=== PATIENT | male | born 1950 | race African-American/Black ===

== ENCOUNTER 2020-09-28 23:06 | Inpatient (IN) | payer OTHER ==
[2020-09-28 23:15] VITALS: BMI 22.2
[2020-09-29] MEDS ORDERED: FUROSEMIDE 40 MG/4 ML INJECTABLE VIAL IVPUSH ONE ×2 (00:37→05:10)
[2020-09-29 01:18] LABS: BASO % 0.8 % (0-2.0); EOS % 0.3 % (0-4.5); HEMATOCRIT 36.3 % (35.4-49); HEMOGLOBIN 12.1 GM/dL (11.7-16.9); LYMPH % 21.9 % (8-40); MCH 28.5 pg (25.7-33.7); MCHC 33.4 g/dl (32.0-35.9); MEAN CELL VOLUME 85.4 fl (80-96); MEAN PLT VOLUME 8.8 fl (7.5-11.1); MONO % 12.5 % (3.8-10.2); NEUT % 64.5 % (42.8-82.8); PLATELET COUNT 259 10^3/uL (134-434); RBC 4.25 M/mm3 (4.00-5.60); RDW 14.1 % (11.9-15.9); WHITE BLOOD COUNT 5.1 K/mm3 (4.0-10.0)
[2020-09-29 01:48] LABS: CALCIUM 9.2 mg/dL (8.5-10.1)
[2020-09-29 01:49] LABS: ALBUMIN 4.4 g/dl (3.4-5.0); BLOOD UREA NITROGEN 35.3 mg/dL (7-18)
[2020-09-29 01:52] LABS: CREATININE 2.3 mg/dL (0.55-1.3)
[2020-09-29 01:54] LABS: BILIRUBIN,TOTAL 2.3 mg/dL (0.2-1); TOT PROT 8.5 g/dl (6.4-8.2)
[2020-09-29] MEDS ORDERED: FUROSEMIDE 40 MG/4 ML INJECTABLE VIAL ONE ×3 (01:54→12:43)
[2020-09-29 01:57] LABS: N-TERMINAL BNP 30100.4 pg/ml (5-125)
[2020-09-29] MEDS ORDERED: INSULIN (NOVOLOG) ASPART 100 UNITS/ML 10ML VIAL SQ SCH ×2 (07:00)
[2020-09-29] MEDS ORDERED: INSULIN SLIDING SCALE (NOVOLOG) 1 VIAL SQ ONE (08:36)
[2020-09-29] MEDS ORDERED: CARVEDILOL 12.5 MG TABLET (FP) ONE (10:17)
[2020-09-29] MEDS ORDERED: APIXABAN 5 MG TABLET ONE (10:17)
[2020-09-29] MEDS: APIXABAN 5 MG TABLET PO SCH (10:36)
[2020-09-29] MEDS: POLYETHYLENE GLYCOL (HEALTHYLAX) 3350 17 GM PACKET PO SCH ×2 (10:36→23:40)
[2020-09-29] MEDS: INSULIN SLIDING SCALE (NOVOLOG) 1 VIAL SQ SCH ×2 (10:36→16:41)
[2020-09-29] MEDS: CARVEDILOL 12.5 MG TABLET (FP) PO SCH (10:36)
[2020-09-29] MEDS: FUROSEMIDE 40 MG/4 ML INJECTABLE VIAL IVPUSH SCH (13:01)
[2020-09-29 14:02] LABS: HEMATOCRIT 32.2 % (35.4-49); HEMOGLOBIN 10.7 GM/dL (11.7-16.9); MCH 28.3 pg (25.7-33.7); MCHC 33.2 g/dl (32.0-35.9); MEAN CELL VOLUME 85.3 fl (80-96); MEAN PLT VOLUME 8.4 fl (7.5-11.1); PLATELET COUNT 204 10^3/uL (134-434); RBC 3.77 M/mm3 (4.00-5.60); RDW 14.2 % (11.9-15.9); WHITE BLOOD COUNT 4.9 K/mm3 (4.0-10.0)
[2020-09-29 14:19] LABS: BLOOD UREA NITROGEN 42.3 mg/dL (7-18); MAGNESIUM 2.1 mg/dL (1.8-2.4)
[2020-09-29 14:22] LABS: CREATININE 2.3 mg/dL (0.55-1.3)
[2020-09-29 14:23] LABS: PHOSPHOROUS 4.3 mg/dL (2.5-4.9)
[2020-09-30] MEDS: ATORVASTATIN CA 20 MG TABLET (FP) PO SCH ×2 (00:08→21:50)
[2020-09-30] MEDS: GABAPENTIN 100 MG CAPSULE PO SCH ×3 (00:08→21:50)
[2020-09-30] MEDS: APIXABAN 5 MG TABLET PO SCH ×3 (00:08→21:50)
[2020-09-30] MEDS: CARVEDILOL 12.5 MG TABLET (FP) PO SCH ×3 (00:08→21:50)
[2020-09-30] MEDS: INSULIN SLIDING SCALE (NOVOLOG) 1 VIAL SQ SCH ×5 (00:08→21:51)
[2020-09-30] MEDS: FUROSEMIDE 40 MG/4 ML INJECTABLE VIAL IVPUSH SCH ×3 (06:19→15:25)
[2020-09-30 07:59] LABS: BASO % 0.8 % (0-2.0); EOS % 2.3 % (0-4.5); HEMATOCRIT 32.2 % (35.4-49); HEMOGLOBIN 10.7 GM/dL (11.7-16.9); LYMPH % 18.2 % (8-40); MCH 28.7 pg (25.7-33.7); MCHC 33.4 g/dl (32.0-35.9); MEAN PLT VOLUME 8.9 fl (7.5-11.1); MONO % 14.8 % (3.8-10.2); NEUT % 63.9 % (42.8-82.8); PLATELET COUNT 202 10^3/uL (134-434); RBC 3.74 M/mm3 (4.00-5.60); RDW 14.5 % (11.9-15.9); WHITE BLOOD COUNT 4.4 K/mm3 (4.0-10.0)
[2020-09-30 08:23] LABS: ALBUMIN 3.6 g/dl (3.4-5.0); CALCIUM 8.7 mg/dL (8.5-10.1); MAGNESIUM 1.9 mg/dL (1.8-2.4)
[2020-09-30 08:26] LABS: CREATININE 2.1 mg/dL (0.55-1.3)
[2020-09-30 08:28] LABS: BILIRUBIN,TOTAL 1.9 mg/dL (0.2-1); PHOSPHOROUS 4.1 mg/dL (2.5-4.9); TOT PROT 6.7 g/dl (6.4-8.2)
[2020-09-30] MEDS: POLYETHYLENE GLYCOL (HEALTHYLAX) 3350 17 GM PACKET PO SCH ×2 (10:04→21:51)
[2020-09-30] MEDS ORDERED: MAGNESIUM OXIDE 400 MG TABLET (FP) PO ONE (10:23)
[2020-09-30 19:46] LABS: URINE APPEARANCE CLEAR; URINE BILIRUBIN NEGATIVE (NEGATIVE); URINE COLOR YELLOW; URINE GLUCOSE (UA) NEGATIVE (NEGATIVE); URINE KETONE NEGATIVE (NEGATIVE); URINE LEUK ESTERASE NEGATIVE (NEGATIVE); URINE NITRITE NEGATIVE (NEGATIVE); URINE PROTEIN NEGATIVE (NEGATIVE)
[2020-10-01] MEDS: FUROSEMIDE 40 MG/4 ML INJECTABLE VIAL IVPUSH SCH ×2 (06:29→14:17)
[2020-10-01] MEDS: INSULIN SLIDING SCALE (NOVOLOG) 1 VIAL SQ SCH ×4 (06:30→21:25)
[2020-10-01 08:03] LABS: BASO % 0.7 % (0-2.0); EOS % 2.4 % (0-4.5); HEMATOCRIT 30.6 % (35.4-49); HEMOGLOBIN 10.2 GM/dL (11.7-16.9); LYMPH % 23.3 % (8-40); MCH 28.4 pg (25.7-33.7); MCHC 33.4 g/dl (32.0-35.9); MEAN CELL VOLUME 84.9 fl (80-96); MEAN PLT VOLUME 8.4 fl (7.5-11.1); MONO % 16.9 % (3.8-10.2); NEUT % 56.7 % (42.8-82.8); PLATELET COUNT 206 10^3/uL (134-434); RBC 3.61 M/mm3 (4.00-5.60); RDW 14.5 % (11.9-15.9); WHITE BLOOD COUNT 3.8 K/mm3 (4.0-10.0)
[2020-10-01 08:19] LABS: ALBUMIN 3.3 g/dl (3.4-5.0); CALCIUM 8.6 mg/dL (8.5-10.1)
[2020-10-01 08:20] LABS: BLOOD UREA NITROGEN 48.6 mg/dL (7-18)
[2020-10-01 08:23] LABS: CREATININE 1.9 mg/dL (0.55-1.3); PHOSPHOROUS 3.9 mg/dL (2.5-4.9)
[2020-10-01 08:24] LABS: BILIRUBIN,TOTAL 1.6 mg/dL (0.2-1); TOT PROT 6.3 g/dl (6.4-8.2)
[2020-10-01] MEDS: GABAPENTIN 100 MG CAPSULE PO SCH ×2 (10:31→21:24)
[2020-10-01] MEDS: POLYETHYLENE GLYCOL (HEALTHYLAX) 3350 17 GM PACKET PO SCH ×2 (10:32→21:24)
[2020-10-01] MEDS: APIXABAN 5 MG TABLET PO SCH ×2 (10:32→21:24)
[2020-10-01] MEDS: CARVEDILOL 12.5 MG TABLET (FP) PO SCH ×2 (11:11→21:24)
[2020-10-01] MEDS ORDERED: MAGNESIUM OXIDE 400 MG TABLET (FP) PO ONE (11:15)
[2020-10-01] MEDS ORDERED: CARVEDILOL 6.25 MG TABLET (FP) PO ONE (11:30)
[2020-10-01] MEDS: ATORVASTATIN CA 20 MG TABLET (FP) PO SCH (21:24)
[2020-10-02] MEDS: INSULIN SLIDING SCALE (NOVOLOG) 1 VIAL SQ SCH ×4 (06:09→21:13)
[2020-10-02] MEDS: FUROSEMIDE 40 MG/4 ML INJECTABLE VIAL IVPUSH SCH ×2 (06:09→15:10)
[2020-10-02 08:31] LABS: BASO % 0.8 % (0-2.0); EOS % 3.4 % (0-4.5); HEMATOCRIT 30.7 % (35.4-49); HEMOGLOBIN 10.2 GM/dL (11.7-16.9); LYMPH % 26.1 % (8-40); MCH 28.4 pg (25.7-33.7); MCHC 33.1 g/dl (32.0-35.9); MEAN PLT VOLUME 8.8 fl (7.5-11.1); MONO % 17.3 % (3.8-10.2); NEUT % 52.4 % (42.8-82.8); PLATELET COUNT 198 10^3/uL (134-434); RBC 3.57 M/mm3 (4.00-5.60); RDW 14.5 % (11.9-15.9); WHITE BLOOD COUNT 3.5 K/mm3 (4.0-10.0)
[2020-10-02 09:10] LABS: ALBUMIN 3.2 g/dl (3.4-5.0); BLOOD UREA NITROGEN 45.4 mg/dL (7-18); CALCIUM 8.3 mg/dL (8.5-10.1)
[2020-10-02 09:13] LABS: CREATININE 1.7 mg/dL (0.55-1.3); PHOSPHOROUS 3.3 mg/dL (2.5-4.9)
[2020-10-02 09:15] LABS: BILIRUBIN,TOTAL 1.3 mg/dL (0.2-1); TOT PROT 6.5 g/dl (6.4-8.2)
[2020-10-02] MEDS: CARVEDILOL 12.5 MG TABLET (FP) PO SCH ×2 (11:03→21:13)
[2020-10-02] MEDS: POLYETHYLENE GLYCOL (HEALTHYLAX) 3350 17 GM PACKET PO SCH ×2 (11:04→21:13)
[2020-10-02] MEDS: APIXABAN 5 MG TABLET PO SCH ×2 (11:04→21:13)
[2020-10-02] MEDS: GABAPENTIN 100 MG CAPSULE PO SCH ×2 (11:04→21:13)
[2020-10-02] MEDS: ATORVASTATIN CA 20 MG TABLET (FP) PO SCH (21:13)
[2020-10-03] MEDS: INSULIN SLIDING SCALE (NOVOLOG) 1 VIAL SQ SCH ×4 (06:27→22:21)
[2020-10-03] MEDS: GABAPENTIN 100 MG CAPSULE PO SCH ×2 (09:25→22:20)
[2020-10-03] MEDS: FUROSEMIDE 40 MG TABLET (FP) PO SCH (09:25)
[2020-10-03] MEDS: APIXABAN 5 MG TABLET PO SCH ×2 (09:25→22:20)
[2020-10-03] MEDS: CARVEDILOL 12.5 MG TABLET (FP) PO SCH ×2 (09:25→22:20)
[2020-10-03] MEDS: POLYETHYLENE GLYCOL (HEALTHYLAX) 3350 17 GM PACKET PO SCH ×2 (09:26→22:21)
[2020-10-03 17:10] LABS: BASO % 0.9 % (0-2.0); EOS % 3.6 % (0-4.5); HEMATOCRIT 31.5 % (35.4-49); HEMOGLOBIN 10.6 GM/dL (11.7-16.9); LYMPH % 19.4 % (8-40); MCH 29.2 pg (25.7-33.7); MCHC 33.6 g/dl (32.0-35.9); MEAN CELL VOLUME 87.1 fl (80-96); MEAN PLT VOLUME 8.8 fl (7.5-11.1); MONO % 18.2 % (3.8-10.2); NEUT % 57.9 % (42.8-82.8); PLATELET COUNT 215 10^3/uL (134-434); RBC 3.62 M/mm3 (4.00-5.60); RDW 14.7 % (11.9-15.9); WHITE BLOOD COUNT 3.8 K/mm3 (4.0-10.0)
[2020-10-03 17:36] LABS: ALBUMIN 3.4 g/dl (3.4-5.0); BLOOD UREA NITROGEN 47.7 mg/dL (7-18); CALCIUM 8.3 mg/dL (8.5-10.1); MAGNESIUM 2.2 mg/dL (1.8-2.4)
[2020-10-03 17:39] LABS: CREATININE 1.9 mg/dL (0.55-1.3)
[2020-10-03 17:40] LABS: PHOSPHOROUS 3.1 mg/dL (2.5-4.9)
[2020-10-03 17:41] LABS: TOT PROT 6.7 g/dl (6.4-8.2)
[2020-10-03] MEDS: ATORVASTATIN CA 20 MG TABLET (FP) PO SCH (22:21)
[2020-10-04] MEDS: INSULIN SLIDING SCALE (NOVOLOG) 1 VIAL SQ SCH ×4 (06:50→22:51)
[2020-10-04 08:01] LABS: EOS % 3.5 % (0-4.5); HEMOGLOBIN 10.4 GM/dL (11.7-16.9); LYMPH % 26.3 % (8-40); MCH 29.1 pg (25.7-33.7); MCHC 33.7 g/dl (32.0-35.9); MEAN CELL VOLUME 86.2 fl (80-96); MEAN PLT VOLUME 8.1 fl (7.5-11.1); MONO % 11.5 % (3.8-10.2); NEUT % 57.7 % (42.8-82.8); PLATELET COUNT 196 10^3/uL (134-434); RBC 3.59 M/mm3 (4.00-5.60); RDW 14.8 % (11.9-15.9); WHITE BLOOD COUNT 3.8 K/mm3 (4.0-10.0)
[2020-10-04 08:55] LABS: BLOOD UREA NITROGEN 49.5 mg/dL (7-18); CALCIUM 8.4 mg/dL (8.5-10.1)
[2020-10-04 08:56] LABS: ALBUMIN 3.5 g/dl (3.4-5.0); MAGNESIUM 2.3 mg/dL (1.8-2.4)
[2020-10-04 08:58] LABS: CREATININE 1.9 mg/dL (0.55-1.3)
[2020-10-04 08:59] LABS: PHOSPHOROUS 3.6 mg/dL (2.5-4.9)
[2020-10-04 09:00] LABS: BILIRUBIN,TOTAL 1.2 mg/dL (0.2-1); TOT PROT 6.7 g/dl (6.4-8.2)
[2020-10-04] MEDS: GABAPENTIN 100 MG CAPSULE PO SCH ×2 (10:18→22:05)
[2020-10-04] MEDS: APIXABAN 5 MG TABLET PO SCH (10:18)
[2020-10-04] MEDS: CARVEDILOL 12.5 MG TABLET (FP) PO SCH ×2 (10:18→22:05)
[2020-10-04] MEDS: POLYETHYLENE GLYCOL (HEALTHYLAX) 3350 17 GM PACKET PO SCH ×2 (10:18→22:05)
[2020-10-04] MEDS: FUROSEMIDE 40 MG TABLET (FP) PO SCH (10:18)
[2020-10-04] MEDS: ATORVASTATIN CA 20 MG TABLET (FP) PO SCH (22:05)
[2020-10-05] MEDS: INSULIN SLIDING SCALE (NOVOLOG) 1 VIAL SQ SCH (06:04)
[2020-10-05 07:43] LABS: BASO % 0.8 % (0-2.0); EOS % 3.5 % (0-4.5); HEMATOCRIT 27.6 % (35.4-49); HEMOGLOBIN 9.5 GM/dL (11.7-16.9); LYMPH % 27.7 % (8-40); MCH 29.2 pg (25.7-33.7); MCHC 34.3 g/dl (32.0-35.9); MEAN CELL VOLUME 85.3 fl (80-96); MONO % 16.2 % (3.8-10.2); NEUT % 51.8 % (42.8-82.8); PLATELET COUNT 193 10^3/uL (134-434); RBC 3.24 M/mm3 (4.00-5.60); RDW 14.9 % (11.9-15.9); WHITE BLOOD COUNT 3.6 K/mm3 (4.0-10.0)
[2020-10-05] MEDS ORDERED: INSULIN (LEVEMIR) 100 UNITS/ML UNITS SQ SCH (08:00)
[2020-10-05 08:05] LABS: CALCIUM 8.1 mg/dL (8.5-10.1)
[2020-10-05 08:06] LABS: ALBUMIN 3.2 g/dl (3.4-5.0); BLOOD UREA NITROGEN 45.2 mg/dL (7-18); MAGNESIUM 2.2 mg/dL (1.8-2.4)
[2020-10-05 08:09] LABS: CREATININE 1.7 mg/dL (0.55-1.3); PHOSPHOROUS 3.4 mg/dL (2.5-4.9)
[2020-10-05 08:10] LABS: BILIRUBIN,TOTAL 1.1 mg/dL (0.2-1); TOT PROT 6.1 g/dl (6.4-8.2)
[2020-10-05 08:46] VITALS: BP 122/72; PULSE 75; TEMP 98
== END 2020-10-05 09:00 | disposition short-term general hospital (02) | DRG 291 ==
LOC: JER 23:06 → JERBED 09-29 00:10 → J4S 09-29 22:53
PROVIDERS: ADMIT Internal Medicine; ATTEND Internal Medicine
DX: I13.0 Hypertensive heart and chronic kidney disease with heart failure and stage 1 through stage 4 chronic kidney disease, or unspecified chronic kidney disease (principal); I50.43 Acute on chronic combined systolic (congestive) and diastolic (congestive) heart failure; I48.92 Unspecified atrial flutter; N17.9 Acute kidney failure, unspecified; I48.20 Chronic atrial fibrillation, unspecified; E78.5 Hyperlipidemia, unspecified; Z79.01 Long term (current) use of anticoagulants; E11.9 Type 2 diabetes mellitus without complications; Z89.511 Acquired absence of right leg below knee; Z95.1 Presence of aortocoronary bypass graft; E11.65 Type 2 diabetes mellitus with hyperglycemia; E11.51 Type 2 diabetes mellitus with diabetic peripheral angiopathy without gangrene; E11.22 Type 2 diabetes mellitus with diabetic chronic kidney disease; N18.9 Chronic kidney disease, unspecified; I25.10 Atherosclerotic heart disease of native coronary artery without angina pectoris; Z91.14 Patient's other noncompliance with medication regimen; K76.1 Chronic passive congestion of liver; E11.42 Type 2 diabetes mellitus with diabetic polyneuropathy; I34.0 Nonrheumatic mitral (valve) insufficiency; Z79.84 Long term (current) use of oral hypoglycemic drugs
CPT/HCPCS: 36415; 71045-TC-FY; 71250-TC; 76775-TC; 80048; 80053; 81003; 82550; 82553; 82962; 83036; 83735; 83880; 84100; 84153; 84443; 84484; 85025; 85027; 93005; 93010; 93306-TC; 99285-25; C9803; U0003; U0005